=== PATIENT | male | born 1960 | race Caucasian/White ===

== ENCOUNTER → 2025-04-15 09:39 | Outpatient (REF) | payer OTHER, SELFPAY | LOC: RAD 09:39 | PROVIDERS: ATTENDING PHYSICIAN Nurse Practitioner | DX: J30.9 Allergic rhinitis, unspecified (principal); R05.3 Chronic cough | CPT/HCPCS: 71046 ==

== ENCOUNTER → 2025-04-18 07:41 | Outpatient (REF) | payer OTHER, SELFPAY | LOC: MRI 3T 07:41 | PROVIDERS: ATTENDING PHYSICIAN Urology; FAMILY PHYSICIAN Nurse Practitioner | DX: E29.1 Testicular hypofunction (principal); R97.20 Elevated prostate specific antigen [PSA] | CPT/HCPCS: 72197; A9575 ==

== ENCOUNTER → 2025-06-28 10:54 | Outpatient (REF) | payer OTHER, SELFPAY | LOC: PET 10:54 | PROVIDERS: ATTENDING PHYSICIAN Urology | DX: C61 Malignant neoplasm of prostate (principal) | CPT/HCPCS: 78815; A9595 ==